=== PATIENT | female | born 1945 | race African-American/Black ===

== ENCOUNTER 2018-03-25 00:40 | Emergency (ER) | payer MEDICARE ==
[~2018-03-25] VITALS: Ht 160 cm; Wt 69.0 kg
[2018-03-25 04:50] VITALS: BP 133/69
[2018-03-25] MEDS ORDERED: ACETAMINOPHEN 325MG TABLET PO ONE (05:00)
== END 2018-03-25 04:53 | disposition home or self-care (01) ==
LOC: ER 00:40
DX: S93.602A Unspecified sprain of left foot, initial encounter (principal); M54.5 Low back pain; R00.1 Bradycardia, unspecified; I10 Essential (primary) hypertension; X58.XXXA Exposure to other specified factors, initial encounter; Y93.89 Activity, other specified; Z87.891 Personal history of nicotine dependence; Y92.89 Other specified places as the place of occurrence of the external cause; Z88.0 Allergy status to penicillin; Z95.5 Presence of coronary angioplasty implant and graft
CPT/HCPCS: 73630; 93005; 93971; 99284

== ENCOUNTER 2021-12-17 18:52 | Emergency (ER) | payer MEDICARE, MEDICAID ==
[~2021-12-17] VITALS: Ht 162.6 cm; Wt 75.0 kg
[2021-12-17 18:57] VITALS: BP 153/33
[2021-12-17 22:50] LABS: BASOPHILS % 0.5 % (0.0-2.0); EOSINOPHILS % 3.4 % (0.0-5.0); HEMATOCRIT. 39.1 % (36.0-48.0); HEMOGLOBIN. 13.2 g/dL (12.0-16.0); LYMPHOCYTES % 22.9 % (20.0-50.0); MEAN CORPUSCULAR HEMOGLOBIN 29.2 pg (28.0-32.0); MEAN CORPUSCULAR VOLUME 86.7 fL (81.0-99.0); MEAN PLATELET VOLUME 7.7 fl (7.4-10.4); MONOCYTES % 7.5 % (2.0-8.0); NEUTROPHILS % 65.7 % (40.0-76.0); PLATELET 256 x1000/uL (130-400); RED BLOOD CELL COUNT 4.51 mill/uL (4.2-5.4); RED CELL DISTRIBUTION WIDTH 14.3 % (11.6-14.6)
[2021-12-17 22:56] LABS: CHLORIDE 105 mEq/L (98-107)
== END 2021-12-17 20:46 | disposition home or self-care (01) ==
LOC: ER 18:52
DX: R22.42 Localized swelling, mass and lump, left lower limb (principal); I10 Essential (primary) hypertension; I25.10 Atherosclerotic heart disease of native coronary artery without angina pectoris; E78.00 Pure hypercholesterolemia, unspecified; Z98.61 Coronary angioplasty status; Z88.0 Allergy status to penicillin
CPT/HCPCS: 36415; 71045; 80053; 83880; 84484; 85025; 93005; 93971; 99285